=== PATIENT | male | born 1950 | race Caucasian/White ===

== ENCOUNTER → 2017-12-25 | Day surgery (SDC) | payer MEDICARE, BC ==
[~2017-12-25] MED LIST: Aspirin 81 mg CHEW TAB* 81 MG TAB.CHEW ONE; Atropine SYRINGE* 0.1 MG/ML 10 ML SYRINGE (1 MG) ONE; Heparin 2 UNITS/ML IVPREMIX* 2,000 ML IV ONE; Heparin(*) 1000 UNIT/ML 10 ML VIAL CATH LAB IV ONE; Iodixanol* (CONTRAST) 320 MG/ML 100 ML SDV ONE; Lidocaine 1% INJ* 10 MG/ML 30 ML SDV ONE; NS 0.9% 1000 ML* 1,000 ML IV SCH; VERAPAMIL 2.5 MG/ML 2 ML VIAL ** 5 mg/2 ml ONE; nitroGLYCERIN DRIP* 25,000 MCG/250 ML BTL ONE
[2017-12-25 16:52] VITALS: BP 132/90
--- NOTE | 2017-12-26 13:35 | CATH ---
CC: Hamlet Haley MD, [facility]; Dr. Damián Frey CARDIAC CATHETERIZATION REPORT: DATE OF PROCEDURE: 12/25/17 INDICATION FOR THE PROCEDURE: Asked by Dr. Hamlet Haley to perform diagnostic cardiac catheterization in light of cardiomyopathy to rule out the presence of significant underlying coronary artery disease. PROCEDURE: Left heart catheterization, left ventriculography, coronary arteriography. The patient was interviewed and examined in the holding area of the computer lab para professional where the risks and benefits were explained. He understood and wished to proceed. APPROACH: Initial attempt with right radial artery switched to right femoral artery. EQUIPMENT UTILIZED: 1. Right femoral artery sheath 6.5-[place] Merit Prelude sheath. 2. Diagnostic cardiac catheters - FL4 curve 5-[place] left coronary catheter and an FR4 curve 5-[place] right coronary catheter. 3. Left heart catheterization. 5-[place] pigtail 145 degree angled catheter. CLOSURE TECHNIQUE: With manual compression. The patient was brought into the cardiovascular laboratory where a formal time- out was performed. The right radial artery had originally been assessed in the holding area under ultrasound and found to be of an acceptable size in the most distal area of the wrist. The area was anesthetized with 1% lidocaine and the artery was initially cannulated; however, the guidewire initially traversed for a short distance but then resistance was met. At that point, the wire was removed and the introducer needle was removed and hemostasis was obtained with local pressure. Ultrasound was then utilized to scan up the right radial artery and it was noted that a short distance further up, the artery became much more smaller in caliber with calcified areas in a circumferential degree making the lumen significantly undersized for potential sheath placement. Decision was then made to use the right femoral artery approach. The patient was anesthetized with 1% lidocaine. Right femoral artery was cannulated and the sheath was placed. Coronary arteriography was performed utilizing the diagnostic catheters. Following this, central aortic pressure was recorded using an angled pigtail catheter, advanced to the ascending aorta, where central aortic pressure was recorded. The catheter was then passed across the aortic valve into the left ventricle, where left ventricular pressure was recorded. Left ventriculography was performed utilizing a power injection, a total of 26 cc of Visipaque dye at a rate of 13 cc per second was utilized. The catheter was then pulled back across the aortic valve to recheck gradient. Following this, the sheath was left in place and manually removed in the holding area. The total contrast used was 66 cc of Visipaque dye. The radiation composure included a 4.5 minutes of fluoro time. The air kerma radiation was 669 mGray. The DAP radiation was 3962 microgray/m2. RESULTS: HEMODYNAMIC DATA: Left heart catheterization revealed central aortic pressure recorded at 145/ 79 with a mean of 107. Left ventricular pressure 150 over left ventricular end diastolic pressure of 18. LEFT VENTRICULOGRAPHY: Performed in the GRIMES projection revealed moderate global left ventricular hypokinesis with overall EF approximately 35%. Post PVC beat showed slightly improved contractility with an EF closer to 40% to 45%. There is no significant mitral regurgitation identified. CORONARY ARTERIOGRAPHY: A. Left coronary artery: 1. Left main - widely patent and short in nature. 2. Left anterior descending artery - there was mild narrowing in the mid portion of left anterior descending artery after the first septal career guidance technician. The degree of narrowing noted to be approximately 35% to 40% in its worst view. It appeared to be less in other views. The continuation of left anterior descending artery supplied several thin diagonal branches extremely small in caliber. There was no significant stenosis seen throughout the body of the LAD as it traversed the apical region on to the distal inferior wall. Of note, the septal perforators also appeared to be somewhat thin in caliber as well. 3. Circumflex artery - a nondominant vessel with a high trifurcation marginal branch, somewhat thin in nature. No significant focal stenosis was seen. Mild mid narrowing of 25 to 30% was seen. The continuation of the circumflex in the AV groove supplied a low lying posterior left ventricular branch moderate in size followed by a smaller bifurcating posterior left ventricular branch. There was no significant stenosis seen throughout the course of those vessels. The circumflex continued on to supply what appeared to be a thin, small caliber and somewhat short posterior left ventricular branch which paralleled the posterior descending artery. B. Right coronary artery - a dominant vessel supplying the PDA. There were no significant posterior left ventricular branches. The caliber of the vessel in general was small in nature. There were no focal stenosis seen throughout the course of the vessel. The right coronary artery supplied a somewhat small caliber but long first right ventricular branch which supplied flow to the right ventricular surface. The PDA was short in nature extending barely to the mid segment of the inferior wall with most of the distal inferior wall supply through the distal LAD. OVERALL ASSESSMENT: Mild LAD disease in the mid segment as described above with no other significant focal stenosis seen. In general, several of the branch vessels appeared to be quite thin in nature. Overall, LV function shows moderate reduction as described in a somewhat global pattern. This information will be shared with Dr. Amarilys Halye, the patient's primary implementation consultant who is managing the patient's overall cardiomyopathy. [id number]/[facility] #: [id number] MTDD
== END | disposition home or self-care (01) ==
LOC: CHICATH 09:54
PROVIDERS: ATTEND Internal Medicine Cardiovascular Disease
DX: I42.9 Cardiomyopathy, unspecified (principal); R06.02 Shortness of breath; I25.10 Atherosclerotic heart disease of native coronary artery without angina pectoris; E11.9 Type 2 diabetes mellitus without complications; Z79.4 Long term (current) use of insulin; Z79.01 Long term (current) use of anticoagulants; I08.0 Rheumatic disorders of both mitral and aortic valves; J44.9 Chronic obstructive pulmonary disease, unspecified; Z86.718 Personal history of other venous thrombosis and embolism; Z87.891 Personal history of nicotine dependence; G25.0 Essential tremor; G60.0 Hereditary motor and sensory neuropathy
CPT/HCPCS: 76937; 93458; A9270-GY; J0461; J1644